=== PATIENT | female | born 1990 | race Caucasian/White ===

== ENCOUNTER 2023-03-23 11:19 | Outpatient (REF) | payer MEDICAID, SELFPAY ==
[2023-03-23 14:18] LABS: MANUAL DIFF FLAG NO
[2023-03-23 14:34] LABS: Basophils Percent Auto 0.3 % (0-2); Eosinophils Absolute Auto 0.4 X10*3/uL (0.0-0.4); Eosinophils Percent Auto 5.1 % (0-4); Hematocrit 31.1 % (37.0-47.0); Hemoglobin 10.7 g/dl (12.0-16.0); Imm Gran Abs Auto 0.02 X10*3/uL (0.00-0.03); Imm Gran Pct Auto 0.3 % (0.0-0.4); Lymphocytes Absolute Auto 2.5 X10*3/uL (1.2-4.9); Lymphocytes Percent Auto 36.1 % (20-40); Mean Corpuscular HGB Conc 34.4 g/dl (31.0-35.0); Mean Corpuscular Hemoglobin 33.6 pg (27.0-33.0); Mean Corpuscular Volume 97.8 fL (80.0-98.0); Mean Platelet Volume 11.5 fL (9.4-12.3); Monocytes Absolute Auto 0.4 X10*3/uL (0.1-1.2); Monocytes Percent Auto 5.6 % (2-11); Neutrophils Absolute Auto 3.6 x10*3/uL (2.0-8.3); Neutrophils Percent Auto 52.6 % (45-73); Platelet Count 339 X10*3/uL (160-400); Red Blood Count 3.18 X10*6/uL (4.20-5.50); White Blood Count 6.8 X10*3/uL (4.8-10.8)
[2023-03-23 15:31] LABS: Iron 67 mcg/dL (30-160); Percent Iron Saturation 17 % (15-50); Total Iron Binding Capacity 386 mcg/dL (228-428); Unsaturated Iron Binding 319 ug/dL
[2023-03-23 15:50] LABS: Ferritin 18 ng/mL (10-122); TSH reflex Free T4 2.74 uIU/mL (0.32-4.0)
== END 2023-03-23 11:20 | disposition home or self-care (01) ==
LOC: HO.CHCLDS 11:19
PROVIDERS: Visit Provider General Practice
DX: D50.9 Iron deficiency anemia, unspecified (principal)
CPT/HCPCS: 36415; 82728; 83540; 84443; 85025

== ENCOUNTER 2023-07-27 10:22 | Outpatient (REF) | payer MEDICAID, SELFPAY ==
[2023-07-27 14:04] LABS: MANUAL DIFF FLAG NO
[2023-07-27 14:07] LABS: Basophils Percent Auto 0.3 % (0-2); Eosinophils Absolute Auto 0.3 X10*3/uL (0.0-0.4); Eosinophils Percent Auto 5.2 % (0-4); Hematocrit 26.4 % (37.0-47.0); Hemoglobin 9.3 g/dl (12.0-16.0); Imm Gran Abs Auto 0.02 X10*3/uL (0.00-0.03); Imm Gran Pct Auto 0.3 % (0.0-0.4); Lymphocytes Absolute Auto 2.2 X10*3/uL (1.2-4.9); Lymphocytes Percent Auto 38.4 % (20-40); Mean Corpuscular HGB Conc 35.2 g/dl (31.0-35.0); Mean Corpuscular Hemoglobin 41.3 pg (27.0-33.0); Mean Platelet Volume 11.8 fL (9.4-12.3); Monocytes Absolute Auto 0.2 X10*3/uL (0.1-1.2); Neutrophils Percent Auto 51.8 % (45-73); Platelet Count 292 X10*3/uL (160-400); Red Blood Count 2.25 X10*6/uL (4.20-5.50); Red Cell Distribution Width 18.2 % (11.0-16.0); White Blood Count 5.7 X10*3/uL (4.8-10.8)
[2023-07-27 14:08] LABS: Mean Corpuscular Volume 117.3 fL (80.0-98.0)
[2023-07-27 14:24] LABS: Alanine Aminotransferase 54 U/L (0-31); Albumin Level 4.8 g/dL (3.5-5.0); Alkaline Phosphatase 57 U/L (39-117); Anion Gap 13 (12-20); Aspartate Amino Transferase 52 U/L (5-31); Bilirubin Direct 0.6 mg/dL (0.0-0.5); Bilirubin Total 2.1 mg/dL (0.0-1.0); Blood Urea Nitrogen 10 mg/dL (9-16); Calcium 9.3 mg/dL (8.4-10.2); Carbon Dioxide 24 mmol/L (22-29); Chloride 106 mmol/L (96-108); Cholesterol 185 mg/dL (<200); Estimated Glomerular Filt Rate > 60; Glucose Random 83 mg/dL (60-115); HDL Cholesterol 37 mg/dL (>40); LDL Cholesterol Calculated 90 mg/dL (<100); Potassium 3.9 mmol/L (3.3-5.1); Sodium 139 mmol/L (135-145); Total Protein 7.9 g/dL (6.5-8.0); Triglycerides 290 mg/dL (<150)
[2023-07-27 15:56] LABS: CT PCR NOT DETECTED (Not Detect.); NG PCR NOT DETECTED (Not Detect.)
[2023-07-28 08:01] LABS: ~HepC Num1 0.08 S/CO (0.00-0.79); ~Hepatitis C Antibody Nonreactive (Nonreactive)
[2023-07-30 17:18] LABS: HIV RNA PCR Qn Copies Not Detected Copies/mL; HIV RNA PCR Qn Log Copies Not Detected Log cps/mL
== END 2023-07-27 10:23 | disposition home or self-care (01) ==
LOC: HO.CHCLDS 10:22
PROVIDERS: Visit Provider Student in an Organized Health Care Education/Training Program
DX: Z00.00 Encounter for general adult medical examination without abnormal findings (principal); Z11.4 Encounter for screening for human immunodeficiency virus [HIV]; Z11.3 Encounter for screening for infections with a predominantly sexual mode of transmission; D50.9 Iron deficiency anemia, unspecified; E03.8 Other specified hypothyroidism
CPT/HCPCS: 0353U; 36415; 80048; 80061; 80076; 84443; 85025; 86803; 87536; 87900

== ENCOUNTER 2023-11-28 18:19 | Emergency (ER) | payer MEDICAID, SELFPAY ==
[2023-11-28 18:21] VITALS: BP 114/75; PULSE 87; RESP 16; TEMP 36.6; O2SAT 99; BMI 35.2
--- NOTE | 2023-11-28 18:21 | ED.GENADULT ---
HPI - General Adult General Chief complaint: Arrhythmia/Palpitations Stated complaint: heart racing,sob Time Seen by Provider: 11/28/23 20:33 Source: patient Mode of arrival: ambulatory Limitations: no limitations History of Present Illness HPI narrative: Patient with chronic allergic rhinitis hypothyroidism on levothyroxine comes here for palpitation episode for last few months patient has been taking pseudoephedrine for nasal congestion given by her PCP patient checked her heart rate was 120 on her Apple watch felt slightly dizzy no chest pain no shortness of breath no fever no chills no syncope Related Data Allergies Allergy/AdvReac Type Severity Reaction Status Date / Time No Known Allergies Allergy Verified 11/28/23 18:23 [No Known Allergies*] Review of Systems Review of Systems: Yes all other systems are reviewed and are negative [facility] Social History Social History Smoked in Last 30 Days: Yes Use of substances other than those prescribed or required for medical reasons: No Advance Directives: No Advance Directives Information Provided: No Do you have a plan to hurt others: No Plan Patient : No Physical Exam ED Vital Signs: Vital Signs - 24 hr 11/28/23 18:21 11/28/23 20:25 11/28/23 21:00 Temperature 97.8 F 98.0 F 97.9 F Pulse Rate 87 80 78 Respiratory Rate 16 17 18 Blood Pressure 114/75 114/70 118/78 Pulse Oximetry 99 98 99 Oxygen Delivery Method Room Air Room Air BMI result Body Mass Index 35.2 Appearance: Alert. Oriented X3. No acute distress. Eyes: No pallor or icterus ENT: Pharynx normal. Oral Mucosa moist Neck: Normal inspection. Neck supple. CVS: Normal heart rate and rhythm. Pulses normal. No murmur rub or gallop Respiratory: No respiratory distress. Equal air entry bilateral, no wheezing/rales/rhonchi Abdomen: Soft and nontender. Bowel sounds are present, Skin: Skin warm and dry. Normal skin color. Normal skin turgor. Extremities: No lower extremity edema. No calf tenderness Neuro: Oriented X 3. No motor deficit. Course Course Course Narrative: This is rapid medical exam. Deferred additional HPI, ROS, PE to primary provider. 33-year-old female here with 'racing heart and shortness of breath x 1 day with history of anemia, hypothyroidism. Will obtain labs, EKG, VSS Medical Decision Making Medical Decision Making [facility] Narrative: Patient was tachycardia episodes taking pseudoephedrine likely the cause at this time patient heart rate is sinus rhythm about 80 beats per minute no signs of tachycardia patient advised to stop taking Sudafed Differential Diagnosis Differential Diagnoses: The differential diagnosis associated with the presentation includes Sinus tachycardia/atrial fibrillation/atrial flutter/hyperthyroidism Lab Data [facility] Lab Attestation statement: I reviewed the patient's lab results. 11/28/23 18:41 11/28/23 18:41 Labs: Lab Results 11/28/23 Range/Units 18:41 WBC 5.7 (4.8-10.8) X10*3/uL RBC 3.51 L D (4.20-5.50) X10*6/uL Hgb 11.4 L D (12.0-16.0) g/dl Hct 32.3 L D (37.0-47.0) % MCV 92.0 (80.0-98.0) fL MCH 32.5 (27.0-33.0) pg MCHC 35.3 H (31.0-35.0) g/dl RDW 22.8 H (11.0-16.0) % Plt Count 221 (160-400) X10*3/uL MPV 9.9 (9.4-12.3) fL Immature Gran % (Auto) 0.2 (0.0-0.4) % Neut % (Auto) 39.2 L (45-73) % Lymph % (Auto) 49.7 H (20-40) % Camas % (Auto) 7.1 (2-11) % Eos % (Auto) 3.4 (0-4) % Baso % (Auto) 0.4 (0-2) % Lymph # (Auto) 2.8 (1.2-4.9) X10*3/uL Camas # (Auto) 0.4 (0.1-1.2) X10*3/uL Eos # (Auto) 0.2 (0.0-0.4) X10*3/uL Baso # (Auto) 0.0 (0.0-0.2) X10*3/uL Abs Immat Gran (auto) 0.01 (0.00-0.03) X10*3/uL Absolute Neuts (auto) 2.2 (2.0-8.3) x10*3/uL Absolute Nucleated RBC 0.000 (0.0-0.012) X10*3/uL Nucleated RBC % (auto) 0.0 (0.0-0.2) /100WBC Sodium 138 (135-145) mmol/L Potassium 4.0 (3.3-5.1) mmol/L Chloride 106 (96-108) mmol/L Carbon Dioxide 26 (22-29) mmol/L Anion Gap 10 L (12-20) BUN 12 (9-16) mg/dL Creatinine 0.62 (0.5-1.4) mg/dL Estim Creat Clear Calc 119.9 Estimated GFR > 60 Random Glucose 103 (60-115) mg/dL Calcium 9.3 (8.4-10.2) mg/dL Total Bilirubin 1.3 H (0.0-1.0) mg/dL Direct Bilirubin 0.3 (0.0-0.5) mg/dL AST 29 (5-31) U/L ALT 38 H (0-31) U/L Alkaline Phosphatase 92 (39-117) U/L Troponin I High Sens < 2.7 (<3.5-17.0) ng/L Total Protein 8.1 H (6.5-8.0) g/dL Albumin 4.6 (3.5-5.0) g/dL TSH 15.55 H (0.32-4.0) uIU/mL Free T4 0.76 (0.71-1.85) ng/dL Independent Interpretation I performed an independent interpretation of an: EKG Interpretation: Normal sinus rhythm heart rate 84 beats per minute normal interval normal axis no acute ST T wave changes no acute ischemia Discharge Plan Discharge Clinical Impression: Palpitations Patient Disposition: Home, Self-Care Instructions: Heart Palpitations (ED) Additional Instructions: Drink plenty of fluids Stop taking psedoephedrine as this could be the cause for palpitation Follow with PCP/news director if heart rate stays faster than 140/dizziness/passing out episode Interventions: ED Discharge Assessment Last Done: 11/28/23 21:00 Discharge Date/Time: 11/28/23 21:01 Print Language: Macedonian
--- NOTE | 2023-11-28 18:22 | ECG_ITS ---
Test Reason : PALPITATIONS Blood Pressure : / mmHG Vent. Rate : 084 BPM Atrial Rate : 084 BPM P-R Int : 138 ms QRS Dur : 078 ms QT Int : 358 ms P-R-T Axes : 020 017 021 degrees QTc Int : 423 ms Normal sinus rhythm Low voltage QRS Borderline ECG No previous ECGs available Referred By: Sharonda Espino Electronically Signed By:CLARISA AGUERO MD
[2023-11-28 18:45] LABS: MANUAL DIFF FLAG NO
--- OUTSIDE RECORDS SUMMARY | 2023-11-28 18:45 | XMS_ITS | Continuity of Care Document ---
Author Organization [facility] ter Address [address] [place] [id number]- Care Team Providers Care Box Packer Name Role Phone Danelle Cameron MD Primary Care Physician Encounter [facility] [place] Date(s): 11/28/21 - 11/28/[address] [address]- Discharge Disposition: A-D/C Home Attending Physician: Magaly Gordon DO Admitting Physician: Magaly Gordon DO Referring Physician: Not on Staff, Referring MD Allergies, Adverse Reactions, Alerts No Known Allergies Immunizations Given and Recorded Vaccine Date Status Refusal Reason tetanus/diphtheria/pertussis, acel(Tdap) 02/16/16 Given Medications acetaminophen 325 mg oral tablet 650 mg, By Mouth, Every 4 hours, not to exceed 4000 mg/day as needed for mild postoperative pain okto take with ibuprofen, Refills 0, Maintenance, 10/05/18 14:56:23 EST Start Date: 10/05/18 Status: Ordered ferrous sulfate 325 mg oral enteric coated tablet 325 mg, 1, tablet, By Mouth, Daily, # 90 tablet, Refills 0, Maintenance, 06/06/19 13:07:26 EDT Start Date: 06/06/19 Status: Ordered methocarbamol 500 mg oral tablet 2 tablet = 1,000 mg, By Mouth, 4 times a day, PRN Pain , Moderate, for 4 days, # 32 tablet, 0 Refills, Acute 12/02/21 2:49:00 EDT, 11/28/21 2:49:00 EDT, Tablet, [id number], Partial fill upon patient request if the prescription is for... Start Date: 11/28/21 Stop Date: 12/02/21 Status: Ordered Tirosint 75 mcg (0.075 mg) oral capsule 1 capsule = 75 mcg, By Mouth, Daily, # 30 capsule, 1 Refills, Maintenance, 06/11/19 9:24:46 EST, Capsule Start Date: 06/11/19 Status: Ordered Problem List Condition Effective Dates Status Health Status Inform ant Acute anxiety(Confirmed) Active Cholelithiasis(Confirmed) Active Congenital cataract and lens anomalies(Confirmed) Active H/O positive serological nico ction for syphilis(Confirmed) 1 Active Myopia with astigmatism(Confirmed) Active Rubella non-immune status, antepartum(Confirmed) Active 1treated with two injections at [facility] Vital Signs Most recent to oldest [Reference Range]: 1 Oxygen Saturation [94-100 %] 99 % (11/28/21 1:32 AM) Pulse Rate [55-90 bpm] 100 bpm *H* (11/28/21 1:32 AM) Blood Pressure [90-138/55-84 mm Hg] 105/ 67mm Hg (11/28/21 1:32 AM) Respiratory Rate [16-30 br/min] 16 br/mi n (11/28/21 1:32 AM) Temperature [96.8-100.4 DegF] 98.8 DegF (11/28/21 1:32 AM) Mode of Delivery (Oxygen) Room air (11/28/21 1:32 AM) Blood pressure sites Arm, left (11/28/21 1:32 AM) Temperature Route Oral (11/28/21 1:32 AM) Social History Social History Type Response Tobacco Use: 4 or less cigar ettes(less than 1/4 pack)/day in last 30 days. Sex
--- OUTSIDE RECORDS SUMMARY | 2023-11-28 18:45 | XMS_ITS | Continuity of Care Document ---
Author Organization [facility] Address [address] [place] [id number]- Care Team Providers Care Grid Trimmer Name Role Phone Danelle Cameron MD Primary Care Physician [place] [facility] [place](s): 02/15/22 - 03/26/[address] [id number] Attending Physician: Not on Staff, Attending MD Allergies, Adverse Reactions, Alerts No Known [...] 13:07:26 EDT Start Date: 06/06/19 Status: Ordered Tirosint 75 mcg (0.075 mg) [...] antepartum(Confirmed) Active 1treated with two injections at [facility] Social History Social History Type Response Tobacco Use: 4 or less cigar ettes(less than 1/4 pack)/day in last 30 days. Sex
--- OUTSIDE RECORDS SUMMARY | 2023-11-28 18:46 | XMS_ITS | Continuity of Care Document ---
Author Organization [facility] ter Address [address] [place] [id number]- Care Team Providers Care Department Administrator Name Role Phone Danelle Cameron MD Primary Care Physician [phone] Encounter [facility] [place] Date(s): 07/01/21 - 07/01/[address] [address]- Encounter Diagnosis COVID(Final) - 07/01/21 Discharge Disposition: A-D/C Home Attending Physician: Caitlin Hernandez MD Admitting Physician: Caitlin Hernandez MD Referring Physician: Not on Staff, Referring MD Allergies, Adverse Reactions, Alerts Substance Reaction Severity Status NKA Active Immunizations Given and Recorded Vaccine Date Status [...] 13:07:26 EDT Start Date: 06/06/19 Status: Ordered ondansetron 4 mg oral tablet, disintegrating 1 tablet = 4 mg, By Mouth, Every 8 hours, PRN Nausea & Vomiting, for 3 days, # 15 tablet, 0 Refills, Acute 07/04/21 20:54:00 EST, 07/01/21 20:54:00 EST, Tablet, [facility][id number], Partial fill upon patient request if the prescription is for... Start Date: 07/01/21 Stop Date: 07/04/21 Status: Ordered Tirosint 75 mcg (0.075 mg) [...] antepartum(Confirmed) Active 1treated with two injections at [facility] Results Radiology Reports * Exam Date Time Procedure Performing Provider Status 07/01/21 5:42 PM Chest Portable Celena David (Verified) Notes: (Chest Portable) Reason For Exam: Cough RESULT: Chest Portable Chest Portable Hx of Present Illness: Covid + kearney weakness Pt covid + on day, increasing cough and weakness; Reason: Cough; Clinical Question(s): Pneumonia; Special Instructions: This is a protocol film and radiologist should call any findings to the Charge Nurse or appropriate provider COMPARISON: None. FINDINGS: LINES AND TUBES: None. LUNGS AND PLEURA: Clear lungs. Normal pulmonary vascularity. No pleural effusion. No pneumothorax. HEART, MEDIASTINUM AND TANIYA: Heart is normal in size. Normal upper mediastinal and hilar contour. BONES AND SOFT TISSUES: No acute abnormality. IMPRESSION: No focal consolidation. WSN: [id number] Ordering Physician: Jessie Ulloa Dictated By: Jayson Nichols MD Dictated Date/Time: 07/01/21 5:44 pm Reviewed By: Jayson Nichols MD Signed By: Jayson Nichols MD Signed Date/Time: 07/01/21 5:44 pm Transcribed By: VENKATA Transcribed Date/Time: 07/01/21 5:43 pm Vital Signs Most recent to oldest [Reference Range]: 1 2 3 Oxygen Saturation [94-100 %] 98 % (07/01/21 9:19 PM) 94 % (07/01/21 7:31 PM) 100 % (07/01/21 5:56 PM) Pulse Rate [55-90 bpm] 90 bpm (07/01/21 9:19 PM) 83 bpm (07/01/21 7:31 PM) 92 bpm *H* (07/01/21 5:56 PM) Blood Pressure [90-138/55-84 mm Hg] 100/78mm Hg (07/01/21 9:19 PM) 120/72mm Hg (07/01/21 1:35 PM) Respiratory Rate [16-30 br/min] 18 br/min (07/01/21 9:19 PM) 21 br/min (07/01/21 5:56 PM) 16 br/min (07/01/21 1:35 PM) Temperature [96.8-100.4 DegF] 98.1 DegF (07/01/21 9:19 PM) 100.6 DegF *H* (07/01/21 1:35 PM) Mode of Delivery (Oxygen) Room air (07/01/21 9:19 PM) Room air (07/01/21 7:31 PM) Room air (07/01/21 5:56 PM) Temperature Route Oral (07/01/21 9:19 PM) Oral (07/01/21 1:35 PM) Social History Social History Type Response Tobacco Use: 4 or less cigar ettes(less than 1/4 pack)/day in last 30 days. Sex
--- OUTSIDE RECORDS SUMMARY | 2023-11-28 18:46 | XMS_ITS | Continuity of Care Document ---
Author Organization [facility] Address [address] [place] [id number]- Care Team Providers Care Highway Engineer Name Role Phone Danelle Cameron MD Primary Care Physician Encounter [facility] [place] Date(s): 03/03/22 - 04/02/[address] [address] Attending Physician: Rebecca Sherwood Admitting Physician: Rebecca Sherwood Referring Physician: Rebecca Sherwood Allergies, Adverse Reactions, Alerts No Known Allergies [...] antepartum(Confirmed) Active 1treated with two injections at [facility] Procedures Procedure Date Related Diagnosis Body Site Status Extraction of wisdom tooth Completed Vital Signs Most recent to oldest [Reference Range]: 1 Height 152.00 cm (11/24/15 1:21 PM) Social History Social History Type Response Tobacco Use: 4 or less cigar ettes(less than 1/4 pack)/day in last 30 days. Sex Care Team Personnel Name: Danelle Cameron MD Address: [address] [place] [address]
--- OUTSIDE RECORDS SUMMARY | 2023-11-28 18:46 | XMS_ITS | Continuity of Care Document ---
Author Organization [facility] Address [address] [place] [address]- Care Team Providers Care Executive Account Manager Name Role Phone Danelle Cameron MD Primary Care Physician Encounter [facility] [place] Date(s): 09/17/19 - 09/27/19 [facility] [address] [place] [id number]- [facility] Attending Physician: Rebecca Sherwood Admitting Physician: Rebecca Sherwood Referring Physician: Rebecca Sherwood Allergies, Adverse Reactions, Alerts Substance Reaction Severity [...] antepartum(Confirmed) Active 1treated with two injections at [facility] Social History Social History Type Response Tobacco Use: 4 or less cigar ettes(less than 1/4 pack)/day in last 30 days. Sex
--- OUTSIDE RECORDS SUMMARY | 2023-11-28 18:46 | XMS_ITS | Continuity of Care Document ---
Author Organization [facility] Address [address] [place] [id number]- Care Team Providers Care Lumber Material Handler Name Role Phone Danelle Cameron MD Primary Care Physician [place] [facility] [place]/24[place] - 04/02/[address] [address] Attending Physician: Not on Staff, Attending MD [...] antepartum(Confirmed) Active 1treated with two injections at [facility] Social History Social History Type Response Tobacco Use: 4 or less cigar ettes(less than 1/4 pack)/day in last 30 days. Sex Care Team Personnel Name: Danelle Cameron MD Address: [address] [place] [address]
[2023-11-28 18:49] LABS: Basophils Percent Auto 0.4 % (0-2); Eosinophils Absolute Auto 0.2 X10*3/uL (0.0-0.4); Eosinophils Percent Auto 3.4 % (0-4); Hematocrit 32.3 % (37.0-47.0); Hemoglobin 11.4 g/dl (12.0-16.0); Imm Gran Abs Auto 0.01 X10*3/uL (0.00-0.03); Imm Gran Pct Auto 0.2 % (0.0-0.4); Lymphocytes Absolute Auto 2.8 X10*3/uL (1.2-4.9); Lymphocytes Percent Auto 49.7 % (20-40); Mean Corpuscular HGB Conc 35.3 g/dl (31.0-35.0); Mean Corpuscular Hemoglobin 32.5 pg (27.0-33.0); Mean Platelet Volume 9.9 fL (9.4-12.3); Monocytes Absolute Auto 0.4 X10*3/uL (0.1-1.2); Monocytes Percent Auto 7.1 % (2-11); Neutrophils Absolute Auto 2.2 x10*3/uL (2.0-8.3); Neutrophils Percent Auto 39.2 % (45-73); Platelet Count 221 X10*3/uL (160-400); Red Blood Count 3.51 X10*6/uL (4.20-5.50); Red Cell Distribution Width 22.8 % (11.0-16.0); White Blood Count 5.7 X10*3/uL (4.8-10.8)
[2023-11-28 19:07] LABS: Alanine Aminotransferase 38 U/L (0-31); Albumin Level 4.6 g/dL (3.5-5.0); Alkaline Phosphatase 92 U/L (39-117); Anion Gap 10 (12-20); Aspartate Amino Transferase 29 U/L (5-31); Bilirubin Direct 0.3 mg/dL (0.0-0.5); Bilirubin Total 1.3 mg/dL (0.0-1.0); Blood Urea Nitrogen 12 mg/dL (9-16); Calcium 9.3 mg/dL (8.4-10.2); Carbon Dioxide 26 mmol/L (22-29); Chloride 106 mmol/L (96-108); Creatinine Clr Calc Pharmacy 119.9; Estimated Glomerular Filt Rate > 60; Glucose Random 103 mg/dL (60-115); Sodium 138 mmol/L (135-145); Total Protein 8.1 g/dL (6.5-8.0)
[2023-11-28 19:09] LABS: Troponin-I High Sensitivity < 2.7 ng/L (<3.5-17.0)
[2023-11-28 19:21] LABS: TSH reflex Free T4 15.55 uIU/mL (0.32-4.0)
[2023-11-28 20:15] LABS: Free T4 (Free Thyroxine) 0.76 ng/dL (0.71-1.85)
[2023-11-28 20:25] VITALS: BP 114/70; PULSE 80; RESP 17; TEMP 36.7; O2SAT 98
--- NOTE | 2023-11-28 20:27 | PC.NURSE ---
pt from home, a&ox4, respirations even and unlabored, pt reporting onset of heart palpitations x3 months, reports it is intermittent but when her heart beats quickly it causes nausea and dizziness. pt denies vomiting and diarrhea, denies chest pain at this time and when palpitations occur. pt normal sinus on tele 70-73bpm.
[2023-11-28 21:00] VITALS: BP 118/78; PULSE 78; RESP 18; TEMP 36.6; O2SAT 99
== END 2023-11-28 21:01 | disposition home or self-care (01) ==
PROVIDERS: Nurse Practitioner Family; Emergency Provider Internal Medicine; PCP Student in an Organized Health Care Education/Training Program
DX: R00.2 Palpitations (principal); E03.9 Hypothyroidism, unspecified; Z79.899 Other long term (current) drug therapy
CPT/HCPCS: 36415; 80048; 80076; 84439; 84443; 84484; 85025; 93005; 99283; 99285

== ENCOUNTER → 2023-11-28 18:22 | Outpatient (BNV) | payer MEDICAID, SELFPAY | PROVIDERS: Emergency Provider Internal Medicine; PCP Student in an Organized Health Care Education/Training Program; Visit Provider Internal Medicine Cardiovascular Disease | DX: R00.2 Palpitations (principal) | CPT/HCPCS: 93010 ==